=== PATIENT | female | born 1945 | race Caucasian/White ===

== ENCOUNTER → 2016-08-05 | Outpatient (CLI) | payer OTHER ==
[~2016-08-05] MED LIST: ACET-1256 PO; ALPR-411 PO; BIOT10TA2 PO; CHOL2000 PO; DULO60CA44 PO; ESCI10TA17 PO; FERR1TAB13 PO; GABA-112 PO; KETO0.5S33 OPL; MAGN250T3 PO; MISCCAP52 PO; OXYC-57 PO; PRED1SUS3 OPR; PRIM50TA29 PO; PRLSR20 PO; ROPI2TAB6 PO
--- NOTE | 2016-08-05 11:43 | DIAGNOSTIC IMAGING REPORT ---
CHEST 2 VIEWS ROUTINE CLINICAL HISTORY: Preoperative chest COMPARISON STUDY: No previous studies for comparison. FINDINGS: The cardiac and mediastinal contours are normal. There is no evidence of focal pulmonary consolidation. There is no evidence of failure. No pleural effusions are visualized.[ A density at the level of the right cardiophrenic angle is likely secondary to a fat pad. IMPRESSION: No active disease in the chest. Electronically signed by: Luis Rincon M.D. 08/05/2016 11:42 AM Dictated Date/Time: 08/05/2016 11:41 AM
[2016-08-05 12:46] LABS: URINE APPEARANCE CLEAR (CLEAR); URINE BILIRUBIN NEG (NEG); URINE COLOR YELLOW; URINE EPITHELIAL CELL AUTO >30 /lpf (0-5); URINE NITRITE NEG (NEG); URINE PH 5.5 (4.5-7.5); URINE SPECIFIC GRAVITY 1.024 (1.000-1.030); UROBILINOGEN NEG (NEG)
[2016-08-05 12:56] LABS: MANUAL MICROSCOPIC REQUIRED? NO; REVIEW REQ? YES
[2016-08-05 13:01] LABS: BASO % 0.2 %; BASO ABS # 0.01 K/uL (0-0.2); COMPLETE YES; EOS % 3.5 %; HEMATOCRIT 39.8 % (37-47); IG% 0.2 %; LYMPH % 34.5 %; LYMPH ABS # 2.09 K/uL (1.2-3.4); MEAN CELL VOLUME 88.1 fL (80-100); MEAN CORPUSCULAR HEMOGLOBIN 29.2 pg (25-34); MEAN CORPUSCULAR HGB CONC 33.2 g/dl (32-36); MEAN PLATELET VOLUME 9.2 fL (7.4-10.4); NEUT % 56.6 %; PLATELET COUNT 206 K/uL (130-400); RED BLOOD COUNT 4.52 M/uL (4.2-5.4); WHITE BLOOD COUNT 6.06 K/uL (4.8-10.8)
[2016-08-05 13:04] LABS: BLOOD UREA NITROGEN 13 mg/dl (7-18); BUN/CREATININE RATIO 12.8 (10-20); CARBON DIOXIDE 27 mmol/L (21-32); CHLORIDE 105 mmol/L (98-107); CREATININE 0.99 mg/dl (0.60-1.20); GLUCOSE 86 mg/dl (70-99); POTASSIUM 4.6 mmol/L (3.5-5.1); SODIUM 139 mmol/L (136-145)
== END | disposition home or self-care (01) ==
LOC: C.CPL 10:43
PROVIDERS: ATTEND Orthopaedic Surgery Orthopaedic Surgery of the Spine
DX: M46.1 Sacroiliitis, not elsewhere classified (principal)

== ENCOUNTER 2016-08-23 10:18 | Day surgery (SDC) | payer OTHER ==
[2016-08-06 08:53] VITALS: BMI 25.0
[~2016-08-23] VITALS: Ht 165.1 cm; Wt 70.0 kg
[~2016-08-23 10:18] MED LIST changes: -ACET-1256 PO; -ALPR-411 PO; +ATROPINE SULFATE 0.1 MG/ML 5ML SYR IV PRN; +CEFAZOLIN 1000MG/55 ML D5W IV SCH; -ESCI10TA17 PO; +EpHEDrine SULFATE INJ 50 MG/ML AMP IV PRN; +FENTANYL CITRATE INJ 50 MCG/1 ML 2 ML VIAL IV PRN; -KETO0.5S33 OPL; +LACTATED RINGER'S 1000ML 1,000 ML IV SCH; -OXYC-57 PO; -PRED1SUS3 OPR; -PRLSR20 PO
[2016-08-23 10:42] VITALS: BP 140/87; PULSE 97; TEMP 36.6; O2SAT 95; Ht 165.1 cm; Wt 70.0 kg
[2016-08-23] MEDS ORDERED: ACET-1256 PO (10:55)
--- NOTE | 2016-08-23 11:14 | History & Physical Bridge Note ---
H&P Re-Evaluation Bridge Note: I have examined the patient, reviewed the History & Physical and in the interval since the performance of the History & Physical I have noted the following changes of clinical significance: No changes noted
--- NOTE | 2016-08-23 11:14 | History and Physical ---
History & Physical Date Aug 23, 2016. Chief Complaint SI joint pain History of Present Illness The patient is a 70 year old female with complaints of Additional History Hepatic Disease: No Endocrine Disorder: No Kidney Disease: No Hypertension: No Heart Disease: No Bleeding Tendencies: No Infectious Diseases: No Allergies Coded Allergies: Morphine (Verified Allergy, Unknown, ITCHING, 08/23/16) Home Medications Scheduled Biotin (Biotin), 2 TAB PO BID Cholecalciferol (Vitamin D3), 1 CAP PO DAILY Duloxetine Hcl (Cymbalta), 60 MG PO HS Ferrous Sulfate (Kp Ferrous Sulfate), 1 TAB PO HS Gabapentin (Neurontin), 3 TAB PO HS Magnesium (Magnesium 250 mg), 1 TAB PO QAM Misc Natural Products (Turmeric Curcumin), 1 CAP PO HS Primidone (Mysoline), 3 TAB PO HS Ropinirole (Requip), 2 MG PO BID Miscellaneous Medications Acetaminophen (Tylenol), 1,000 MG PO Physical Examination Skin: warm/dry, no rash Eyes: normal inspection, EOMI, sclerae normal ENT: normal ENT inspection, pharynx normal Head: normocephalic, atraumatic Neck: supple, no adenopathy, trachea midline Respiratory/Chest: lungs clear, normal breath sounds, no respiratory distress Cardiovascular: regular rate, rhythm, no edema, no murmur Abdomen / GI: normal bowel sounds, non tender Back: normal inspection Extremities: normal inspection, normal range of motion Neurologic/Psych: no motor/sensory deficits, alert, normal reflexes, oriented x 3 Diagnosis sacralilitis Plan of Treatment left SI joint fusion
[2016-08-23] MEDS ORDERED: MIDAZOLAM HCL 1 MG/ML 2ML VIAL ONE (11:40)
[2016-08-23] MEDS ORDERED: FENTANYL CITRATE INJ 50 MCG/1 ML 2 ML VIAL ONE ×3 (11:40→13:16)
[2016-08-23] MEDS ORDERED: BUPIVACAINE/EPINEPHRINE 0.5% MPF 1:200,000 10 ML VIAL ONE (11:44)
[2016-08-23] MEDS ORDERED: BACITRACIN 50000 UNIT VIAL ONE (11:44)
[2016-08-23] MEDS ORDERED: SODIUM CHLORIDE 0.9% PF 50 ML VIAL ONE (12:14)
[2016-08-23] MEDS ORDERED: HYDROmorphone INJ 2 MG/ML SYR/VIAL ONE (12:15)
[2016-08-23] MEDS ORDERED: ONDANSETRON INJ 2 MG/ML 2 ML VIAL ONE ×2 (12:29)
[2016-08-23] MEDS ORDERED: PHENYLEPHRINE 100MCG/ML 5ML SYR ONE (12:29)
[2016-08-23] MEDS ORDERED: GLYCOPYRROLATE INJ 0.2 MG/ML VIAL ONE (12:29)
[2016-08-23] MEDS ORDERED: NEOSTIGMINE METHYLSULFATE 1 MG/ML 10ML VIAL ONE (12:29)
[2016-08-23] MEDS ORDERED: ROCURONIUM BROMIDE 10 MG/ML 5 ML VIAL ONE (12:29)
[2016-08-23] MEDS ORDERED: ESMOLOL HCL 10 MG/ML 10 ML VIAL ONE (12:29)
[2016-08-23] MEDS ORDERED: LIDOCAINE HCL 2% 2 ML VIAL (20MG/ML) ONE (12:29)
[2016-08-23] MEDS ORDERED: KETOROLAC TROMETHAMINE 30 MG/ML VIAL ONE (12:29)
[2016-08-23] MEDS ORDERED: DEXAMETHASONE SOD INJ 4 MG/ML VIAL ONE (12:29)
[2016-08-23] MEDS ORDERED: PROPOFOL IV EMULSION 10 MG/ML 20 ML VIAL IV ONE (12:29)
--- NOTE | 2016-08-23 12:40 | [facility] Operative Report ---
Operative Report Operative Date Aug 23, 2016. Pre-Operative Diagnosis Sacralilitis Post-Operative Diagnosis same Procedure(s) Performed SI joint fusion Surgeon Dr. Brien Kenny Timber Killer Surgeon(s) Greyson Quiroz PA-C Findings 0 Specimens None per surgeon I attest to the content of the Intraoperative Record and any orders documented therein. Any exceptions are noted below.
[2016-08-23] MEDS ORDERED: OXYC-57 PO (12:42)
--- NOTE | 2016-08-23 12:43 | Discharge Instructions ---
Discharge Instructions Date of Service Aug 23, 2016. Admission Reason for Admission: Sacroilitis, Si Joint Dysfunction Discharge Discharge Diagnosis / Problem: sacralilitis Discharge Goals Goal(s): Improve function Activity Recommendations Activity Limitations: per Instructions/Follow-up section Weightbearing Status: Left toe touch . Instructions / Follow-Up Instructions / Follow-Up may shower friday TTWB with walker to ambulate Current Hospital Diet Patient's current hospital diet: Discharge Diet Recommended Diet: Regular Diet Procedures Procedures Performed: Left Sacroiliac Joint Fusion Pending Studies Studies pending at discharge: no Medical Emergencies . Who to Call and When: Medical Emergencies: If at any time you feel your situation is an emergency, please call 911 immediately. . Non-Emergent Contact Non-Emergency issues call your: Primary Care Provider . "Provider Documentation" section prepared by Brien Kenny. . VTE Core Measure Inpt VTE Proph given/why not?: Rio Gonzalez, SCD's
[2016-08-23] MEDS ORDERED: HYDROmorphone INJ 1 MG/ML SYR IV PRN (12:45)
[2016-08-23] MEDS ORDERED: ACETAMINOPHEN 325 MG TAB PO PRN (12:45)
[2016-08-23] MEDS ORDERED: KETOROLAC TROMETHAMINE 15 MG/ML VIAL IV. PRN (12:45)
[2016-08-23] MEDS ORDERED: OXYCODONE HCL IR 5 MG TAB (IMMEDIATE RELEASE) PO PRN (12:45)
--- NOTE | 2016-08-23 13:06 | DIAGNOSTIC IMAGING REPORT ---
INTRAOPERATIVE SACRUM 3 VIEWS CLINICAL HISTORY: Left SI joint fusion COMPARISON STUDY: No previous studies for comparison. FINDINGS: 84 seconds of fluoroscopic time was utilized. 3 intraoperative fluoroscopic spot images are provided for interpretation. There is evidence for a left hip prosthesis. 3 screws traverse the left SI joint. IMPRESSION: 3 cannulated screws are visualized traversing the left SI joint. Electronically signed by: Luis Rincon M.D. 08/23/2016 1:05 PM Dictated Date/Time: 08/23/2016 1:04 PM
--- NOTE | 2016-08-23 14:00 | Anesthesiology Progress Note ---
Anesthesia Post Op Note Date & Time Aug 23, 2016 at 13:59 Vital Signs Pain Intensity: 2 Vital Signs Past 12 Hours Date Time Temp Pulse Resp B/P (MAP) Pulse Ox O2 Delivery O2 Flow Rate FiO2 08/23/16 13:45 36.2 97 22 123/80 100 Nasal Cannula 2 08/23/16 13:35 98 19 134/83 99 Nasal Cannula 2 08/23/16 13:25 98 14 142/87 90 Room Air 08/23/16 13:15 94 11 135/77 100 Mask 10 08/23/16 13:05 98 18 130/77 100 Mask 10 08/23/16 12:58 36.5 90 17 162/96 100 Mask 10 08/23/16 10:42 36.6 97 18 140/87 (104) 95 Room Air Notes Mental Status: alert / awake / arousable, participated in evaluation Pt Amnestic to Procedure: Yes Nausea / Vomiting: adequately controlled Pain: adequately controlled Airway Patency, RR, SpO2: stable & adequate BP & HR: stable & adequate Hydration State: stable & adequate Anesthetic Complications: no major complications apparent
[2016-08-23 14:50] VITALS: BP 118/69; PULSE 99; TEMP 36.6; O2SAT 95
== END 2016-08-23 15:00 | disposition home or self-care (01) ==
LOC: C.ACU 10:18
PROVIDERS: ATTEND Orthopaedic Surgery Orthopaedic Surgery of the Spine
DX: M46.1 Sacroiliitis, not elsewhere classified (principal)

== ENCOUNTER → 2017-06-23 | Outpatient (CLI) | payer OTHER ==
[~2017-06-23] MED LIST changes: +ACET-1256 PO; -ATROPINE SULFATE 0.1 MG/ML 5ML SYR IV PRN; -CEFAZOLIN 1000MG/55 ML D5W IV SCH; -EpHEDrine SULFATE INJ 50 MG/ML AMP IV PRN; -FENTANYL CITRATE INJ 50 MCG/1 ML 2 ML VIAL IV PRN; -LACTATED RINGER'S 1000ML 1,000 ML IV SCH
[2017-06-23 12:36] LABS: BASO % 0.4 %; BASO ABS # 0.02 K/uL (0-0.2); EOS % 2.1 %; EOS ABS # 0.11 K/uL (0-0.5); HEMATOCRIT 42.8 % (37-47); HEMOGLOBIN 14.5 g/dL (12.0-16.0); IG# 0.01 K/uL (0.00-0.02); LYMPH % 32.1 %; MEAN CELL VOLUME 83.4 fL (80-100); MEAN CORPUSCULAR HEMOGLOBIN 28.3 pg (25-34); MEAN CORPUSCULAR HGB CONC 33.9 g/dl (32-36); MEAN PLATELET VOLUME 9.1 fL (7.4-10.4); MONO ABS # 0.32 K/uL (0.11-0.59); NEUT % 59.2 %; NEUT ABS # 3.13 K/uL (1.4-6.5); PLATELET COUNT 210 K/uL (130-400); RED CELL DISTRIBUTION WIDTH CV 13.2 % (11.5-14.5); RED CELL DISTRIBUTION WIDTH SD 39.6 fL (36.4-46.3); WHITE BLOOD COUNT 5.29 K/uL (4.8-10.8)
[2017-06-23 13:54] LABS: ALKALINE PHOSPHATASE 89 U/L (45-117); ALT/SGPT 24 U/L (12-78); AST/SGOT 23 U/L (15-37); BLOOD UREA NITROGEN 21 mg/dl (7-18); CALCIUM 9.2 mg/dl (8.5-10.1); CARBON DIOXIDE 26 mmol/L (21-32); CHOLESTEROL 219 mg/dl (0-200); CREATININE 1.15 mg/dl (0.60-1.20); GLUCOSE 111 mg/dl (70-99); LDL CHOLESTEROL CALCULATED 100 mg/dl; SODIUM 138 mmol/L (136-145); TOTAL PROTEIN 7.5 gm/dl (6.4-8.2)
== END | disposition home or self-care (01) ==
LOC: C.LABMFLN 08:58
PROVIDERS: ATTEND Family Medicine
DX: E78.5 Hyperlipidemia, unspecified (principal); E55.9 Vitamin D deficiency, unspecified; Z88.9 Allergy status to unspecified drugs, medicaments and biological substances

== ENCOUNTER → 2017-06-30 | Outpatient (CLI) | payer OTHER | END | disposition home or self-care (01) | LOC: C.LABMFLN 09:45 | PROVIDERS: ATTEND Family Medicine | DX: N39.3 Stress incontinence (female) (male) (principal); R63.5 Abnormal weight gain ==